=== PATIENT | male | born 1990 | race Caucasian/White ===

== ENCOUNTER 2020-07-17 16:48 | Emergency (ER) | payer BC, SELFPAY ==
[2020-07-17 16:55] VITALS: BP 134/78; PULSE 72; RESP 16; TEMP 36.4; O2SAT 99
--- NOTE | 2020-07-17 17:20 | ED.GENADULT ---
HPI - General Adult General Chief complaint: Upper Respiratory Infection Stated complaint: sore throat Time Seen by Provider: 07/17/20 17:05 Source: patient and RN notes reviewed Mode of arrival: ambulatory Limitations: no limitations History of Present Illness HPI narrative: 30-year-old male presents with complaints of sore throat with white patches for 1 day. Merrill reports symptoms increased throughout the day with increase soreness to throat and white patches. Ibuprofen 600 mg and gargling with salt water, last today at 08:00 without relief. No high fevers, drooling, neck or throat swelling. Pain is bilateral. Hurts to swallow. Exacerbation factors consist of eating and drinking. No rhinorrhea or nasal congestion. No voice change. Denies chills, dyspnea, difficulty swallowing, jaw pain, dental pain, facial pain, foreign body sensation, and rash. Remains active. The patient reports he have not been diagnosed with COVID-19. The patient reports he is not waiting for the results of a COVID-19 lab test. The patient reports he do not have weakness or fatigue. The patient reports he do not have a new or worsening cough or shortness of breath. Denies chest pain. The patient reports he do not have any loss of taste, nausea, vomiting, abdominal pain, and diarrhea. Tolerating po intake well. Denies recent traveling. Denies concerns for COVID-19 or exposures been home with limited outdoor exposure except for essential household needs and return home. At this time, patient is not suspected of having COVID-19. Some parts of this dictation were generated by voice recognition software and may contain typographical and/or grammatical inaccuracies. Related Data Home Medications Medication Instructions Recorded Confirmed sumatriptan succinate 25 mg PO .PRN 07/17/20 07/17/20 Allergies Allergy/AdvReac Type Severity Reaction Status Date / Time Pork AdvReac Unknown BLOATING Uncoded 07/17/20 19:10 AND DIARRHEA Review of Systems Review of Systems: Narrative: CONSTITUTIONAL: Denies fever, chills, sweats. EYES: Denies visual changes, redness, discharge. ENT: Denies rhinorrhea, otalgia, congestion. Complains of sore throat with white patches. CARDIOVASCULAR: Denies chest pain, palpitations, edema. RESPIRATORY: Denies dyspnea, wheezing, cough. GASTROINTESTINAL: Denies abdominal pain, nausea, vomiting, diarrhea. GENITOURINARY: Denies dysuria, hematuria, abnormal discharge. SKIN: Denies rash or itching. MUSCULOSKELETAL: Denies acute back pain, joint pain, or myalgia. NEUROLOGIC: Denies numbness or focal weakness. PSYCHIATRIC: Denies anxiety or depression. All systems reviewed & are unremarkable except as noted in HPI and below. [facility] Past Medical History Medical History (Updated 07/18/20 @ 00:00 by Betty Lopez) Hx of migraines Surgical History Surgical History (Updated 07/17/20 @ 17:48 by NILS Parkinson) No significant past surgical history Family History Family History (Updated 07/17/20 @ 17:49 by NILS Parkinson) Mother Asthma Father Alive and well Social History Social History (Updated 07/17/20 @ 17:50 by NILS Parkinson) Smoking status: Light tobacco smoker Tobacco type: cigars Second hand tobacco smoke exposure: No Alcohol intake: current Substance use: never Living arrangements: with family Additional living arrangements comments: Spouse Occupation/Education: occupation Additional occupation/education comments: Currently working from home Gender identity (if verbalized by the patient): Male Sexual Orientation (if Verbalized by the Patient): Straight or Heterosexual Comments At time of signature, agree with nurse past medical, surgical, social, and family history. There is no relevant family history pertinent to the presenting complaint. Exam Narrative: Exam Narrative: GENERAL: This is a well-nourished, well-developed patien
== END 2020-07-17 17:44 | disposition home or self-care (01) ==
PROVIDERS: Emergency Provider Nurse Practitioner Family; PCP Family Medicine
DX: J02.9 Acute pharyngitis, unspecified (principal); Z20.828 Contact with and (suspected) exposure to other viral communicable diseases; F17.290 Nicotine dependence, other tobacco product, uncomplicated
CPT/HCPCS: 87081; 87804; 87880; 99213; G0463

== ENCOUNTER 2020-07-18 06:53 | Outpatient (NON) | payer BC, SELFPAY ==
[2020-07-19 14:04] LABS: SARS-CoV-2 RNA PCR Negative
== END 2020-07-18 06:54 ==
LOC: ANHCOVIDDT 07:04
PROVIDERS: PCP Family Medicine; Visit Provider Nurse Practitioner Family
DX: Z20.828 Contact with and (suspected) exposure to other viral communicable diseases (principal); J02.9 Acute pharyngitis, unspecified
CPT/HCPCS: 87635; C9803; U0003

== ENCOUNTER 2022-07-24 09:01 | Emergency (ER) | payer BC, SELFPAY ==
--- NOTE | ~2022-07-24 | XR_ITS ---
XR toe 5th RT min 2V 07/24/2022 10:14 INDICATION: Right fifth toe pain PROCEDURE: 3 views right fifth toe COMPARISON: No prior studies for comparison. FINDINGS: Fracture, dislocation or subluxation is not identified. The soft tissues appear within norm al limits. No foreign bodies are identified. IMPRESSION: 1: NO ACUTE BONE OR JOINT ABNORMALITY IDENTIFIED. Reviewed, dictated and finalized at location A. T [employer]
[2022-07-24 09:45] VITALS: BP 124/86; PULSE 76; RESP 16; TEMP 36.9; O2SAT 97
--- NOTE | 2022-07-24 10:04 | ED.LOWEXIN ---
HPI - Extremity Injury (Lower) General Chief Complaint: Extremity Injury, Lower Stated Complaint: INJURED TOE Time Seen by Provider: 07/24/22 10:00 Source: patient Mode of arrival: ambulatory Limitations: no limitations History of Present Illness HPI Narrative: Patient presents today with an injury to his right 5th toe. States yesterday he walked into a door frame, injuring his toe. He currently rates his pain 3/10, which increases with weight-bearing. He has applied ice, taken nothing for pain. He does report some tingling to the toe. He did consult with an online medical provider, who told him to come to urgent care for an x-ray. Related Data Home Medications Medication Instructions Recorded Confirmed sertraline 50 mg tablet 50 mg PO DAILY 07/24/22 07/24/22 Allergies Allergy/AdvReac Type Severity Reaction Status Date / Time Pork AdvReac Unknown BLOATING Uncoded 07/24/22 10:03 AND DIARRHEA Review of Systems Review of Systems: CONSTITUTIONAL: Denies body aches, fever, chills, or sweats. EYES: Denies visual changes, redness, or discharge. ENT: Denies rhinorrhea, congestion, sore throat, or otalgia. CARDIOVASCULAR: Denies chest pain, palpitations, or edema. RESPIRATORY: Denies cough or dyspnea. GASTROINTESTINAL: Denies abdominal pain, nausea, vomiting, or diarrhea. GENITOURINARY: Denies dysuria or hematuria. SKIN: Denies rash, itching, or wounds. MUSCULOSKELETAL: Denies back pain, or myalgia.+ right 5th toe pain NEUROLOGIC: Denies headache, numbness, or weakness.+ toe tingling PSYCH: Denies depression or anxiety. [facility] Past Medical History Medical History Hx of migraines Surgical History Surgical History No significant past surgical history Family History Family History Mother Asthma Father Alive and well Social History Social History Smoking status: Light tobacco smoker Tobacco type: cigars Second hand tobacco smoke exposure: No Alcohol intake: current Substance use: never Additional living arrangements comments: Spouse Additional occupation/education comments: Currently working from home Gender identity (if verbalized by the patient): Male Sexual Orientation (if Verbalized by the Patient): Straight or Heterosexual Comments At time of signature, I have reviewed and agree with nursing past medical, surgical, social and family history unless otherwise noted. Please see nursing chart for further information. There is no relevant family history pertinent to the presenting complaint Exam Narrative: GENERAL: Well-appearing, well-nourished, and in no acute distress. HEAD: Normocephalic, atraumatic. EYES: EOMI. No redness or drainage. Conjunctivae normal. ENT: Mucous membranes pink and moist. NECK: Normal AROM. CHEST: No respiratory distress. EXTREMITIES: Right 5th toe: Ecchymosis and tenderness throughout the toe. Distal sensation intact. Capillary refill normal. Patient has full AROM with increased pain. No other toes or the remainder of the foot or injured. SKIN: Warm, dry, no rash. Capillary refill normal. Normal skin turgor. NEURO: No focal deficits. Alert and oriented x3. Gait steady. PSYCH: Normal affect. No signs of depression or anxiety. Course Course Level of Care: Express Care Visit Vital Signs Vital signs: Vital Signs Temperature 98.4 F 07/24/22 09:45 Pulse Rate 76 07/24/22 09:45 Respiratory Rate 16 07/24/22 09:45 Blood Pressure 124/86 07/24/22 09:45 Pulse Oximetry 97 07/24/22 09:45 Oxygen Delivery Room Air 07/24/22 09:45 Temperature 98.4 F 07/24/22 09:45 Pulse Rate 76 07/24/22 09:45 Respiratory Rate 16 07/24/22 09:45 Blood Pressure 124/86 07/24/22 09:45 Pulse O
== END 2022-07-24 10:39 | disposition home or self-care (01) ==
PROVIDERS: Emergency Provider Nurse Practitioner; PCP Family Medicine
DX: S90.121A Contusion of right lesser toe(s) without damage to nail, initial encounter (principal); W22.09XA Striking against other stationary object, initial encounter; F17.290 Nicotine dependence, other tobacco product, uncomplicated
CPT/HCPCS: 73660; 99213; G0463

== ENCOUNTER 2025-04-18 07:32 | Outpatient (CLI) | payer BC, SELFPAY ==
--- NOTE | ~2025-04-18 | US_ITS ---
US right upper quadrant INDICATION: Elevated liver enzymes PROCEDURE: Realtime limited abdominal ultrasound. COMPARISON: No prior studies for comparison. FINDINGS: The liver is hyperdense. No focal liver mass. There is normal directional flow in the port al vein. Pancreas was not adequately visualized for evaluation. The gallbladder is normal without stones, gallbladder wall thickening or pericholecystic fluid. Comm on bile duct measures 4.4 mm. No sonographic Galdamez's sign. The study is slightly limited due to the patient's imaging characteristics. IMPRESSION: 1: The liver is hyperdense likely due to fatty infiltration and/or hepatocellular disease. No focal l iver lesion identified. 2. Pancreas was not adequately visualized for evaluation. 3. No sonographic evidence for acute cholecystitis. 4. Otherwise, unremarkable study. Reviewed, dictated and finalized at location A. IMPRESSION: 1: The liver is hyperdense likely due to fatty infiltration and/or hepatocellul ar disease. No focal liver lesion identified. 2. Pancreas was not adequately visualized for evaluation. 3. No sonographic evidence for acute cholecystitis. 4. Otherwise, unremarkable study.
== END 2025-04-18 07:33 | disposition home or self-care (01) ==
LOC: CHSIMG 07:34
PROVIDERS: PCP Family Medicine; Visit Provider Family Medicine
DX: R74.01 Elevation of levels of liver transaminase levels (principal)
CPT/HCPCS: 76705